=== PATIENT | female | born 1970 | race Caucasian/White ===

== ENCOUNTER → 2023-10-25 10:38 | Outpatient (REF) | payer BC, SELFPAY | LOC: HWRAD 10:38 | PROVIDERS: ATTENDING PHYSICIAN Internal Medicine Rheumatology; FAMILY PHYSICIAN Family Medicine | DX: M25.512 Pain in left shoulder (principal); M25.511 Pain in right shoulder | CPT/HCPCS: 73030 ==

== ENCOUNTER → 2024-01-07 07:40 | Outpatient (REF) | payer BC, SELFPAY | LOC: HWRAD 07:40 | PROVIDERS: ATTENDING PHYSICIAN Internal Medicine Rheumatology; FAMILY PHYSICIAN Family Medicine | DX: M35.9 Systemic involvement of connective tissue, unspecified (principal); M79.7 Fibromyalgia | CPT/HCPCS: 76700 ==

== ENCOUNTER → 2024-01-14 14:49 | Outpatient (REF) | payer BC, SELFPAY | LOC: WDC 14:49 | PROVIDERS: ATTENDING PHYSICIAN Radiology Radiation Oncology; FAMILY PHYSICIAN Family Medicine | DX: Z12.31 Encounter for screening mammogram for malignant neoplasm of breast (principal); Z85.3 Personal history of malignant neoplasm of breast | CPT/HCPCS: 77063; 77067 ==

== ENCOUNTER → 2024-01-25 14:13 | Outpatient (REF) | payer BC, SELFPAY | LOC: HWRAD 14:13 | PROVIDERS: ATTENDING PHYSICIAN Student in an Organized Health Care Education/Training Program; FAMILY PHYSICIAN Family Medicine | DX: M25.521 Pain in right elbow (principal); M25.421 Effusion, right elbow | CPT/HCPCS: 73080 ==

== ENCOUNTER → 2024-01-30 09:57 | Outpatient (REF) | payer BC, SELFPAY | LOC: WDC 09:57 | PROVIDERS: ATTENDING PHYSICIAN Radiology Radiation Oncology; FAMILY PHYSICIAN Family Medicine | DX: R92.2 Inconclusive mammogram (principal); Z85.3 Personal history of malignant neoplasm of breast | CPT/HCPCS: 76641 ==

== ENCOUNTER → 2024-03-21 10:15 | Outpatient (REF) | payer BC, SELFPAY | LOC: HWRAD 10:15 | PROVIDERS: ATTENDING PHYSICIAN Internal Medicine Rheumatology; FAMILY PHYSICIAN Family Medicine | DX: M19.021 Primary osteoarthritis, right elbow (principal); M77.11 Lateral epicondylitis, right elbow; M79.7 Fibromyalgia | CPT/HCPCS: 73080 ==

== ENCOUNTER 2024-05-22 10:40 | Emergency (ER) | payer BC, SELFPAY ==
[2024-05-22] VITALS (10 sets, daily range): BP systolic 154–184; BP diastolic 86–121
--- NOTE | 2024-05-22 11:10 | ED.GENMED ---
History of Present Illness
General
Chief Complaint: Blood Pressure Problem
Source: patient
Exam Limitations: none
Time Seen by Provider: 05/22/24 10:58
History of Present Illness
History of Present Illness:
53yoF with a history of hypertension, hyperlipidemia, gastroparesis, rheumatoid arthritis on PRN NSAIDs, fibromyalgia, breast cancer in remission, and anxiety presenting with her for evaluation of elevated blood pressure. Patient's blood
pressure has been elevated the past several PCP visits with SBP of 158-160. She was switched from atenolol to metoprolol 2 weeks ago. She was instructed to start checking her blood pressure 4x daily after taking this new medication for 2 weeks. She
started checking her blood pressure yesterday for the first time at time. Systolic blood pressure was initially in the 140s which kept increasing each time she checked it, up to 160s. Blood pressure was 178/102 this morning. Her heart rate was in
the 130s today. Patient reports having a headache since yesterday. She also is having dizziness which she describes as feeling lightheaded and swaying with ambulation. Symptoms are only present with standing/activity and resolve with rest. She also
is having some shortness of breath and chest tightness. She called her PCP and was told to go to the ED for evaluation. Patient is not on any other blood pressure medication.
Past History
Past History
ED Past Medical History: Cancer (Breast cancer), HTN, Hypercholesterolemia (Diet-controlled) and Psychiatric (Anxiety)
ED Past Surgical History: Tonsilectomy
Social History
Tobacco: Non-smoker
Alcohol: None
Drug: None
Personal:
Living: with family
Employment: Employed
Family History
Family History: Adopted
Phy Exam
General Physical Exam
General Presentation: well appearing and no apparent distress
General age: appears stated age
General Skin: warm and dry
General Habitus: normal
General Mental: alert and anxious
ENT Exam
ENT Exam: normocephalic
Eye Exam
Eye Exam: PERRL and EOMI
Cardiovascular Exam
Cardiovascular Exam: no murmur and tachycardia
Pulmonary Exam
Pulmonary Exam: lungs clear, no respiratory distress, no rales, no crackles, no rhonchi and no wheezing
Neurological Exam
Neurological Exam: alert, no motor deficits and other (PERRL. EOMs intact without nystagmus. Normal finger to nose and heel to looney bilaterally. )
[place] Coma Scale
Eye Opening: Spontaneous
Verbal Response: Oriented
Motor Response: Obeys Commands
GCS Total Score: 15
Skin Exam
Skin Exam: normal color and warm/dry
Psychiatric Exam
Psychiatric Exam: anxious
Course
Orders/Labs/Results
Orders:
Orders
05/22/24 10:41
Electrocardiogram (*1) Urgent
Reason for Study: Hypertension, Benign
EKG- Treatment ONCE
05/22/24 11:10
CT Head W/o Iv Contrast Urgent
Comment:
Reason For Exam: headache, dizziness, HTN
05/22/24 11:16
Complete Blood Count/With Diff Urgent
Comprehensive Metabolic Panel Urgent
D-Dimer Urgent
Magnesium Urgent
Manual Differential Urgent
TSH Reflex To Free T4 Urgent
Troponin I Urgent
05/22/24 11:58
CT Chest PE Study Urgent
Comment:
Reason For Exam: SOB, tachycardia, elevated D-dimer
05/22/24 14:56
Amlodipine [Norvasc] 5 mg PO ONCE ONE
Abnormal Lab Results
05/22/24
11:16
MCHC 32.9 L g/dL
(33.0-37.0)
Lymphocytes (Manual) 16 L %
(20-51)
Monocytes (Manual) 22 H %
(2-9)
D-Dimer 0.92 H ug/mlFEU
(0.00-0.50)
Glucose 105 H mg/dl
(70-99)
AST 73 H U/L
(14-36)
ALT 105 H U/L
(0-35)
Alkaline Phosphatase 164 H U/L
(38-126)
05/22/24 11:16
05/22/24 11:16
Vital Signs
Initial and Last Documented VS:
Initial Vital Signs
Temp Pulse Resp BP Pulse Ox
98.5 F 128 20 184/121 97
05/22/24 10:50 05/22/24 10:50 05/22/24 10:50 05/22/24 10:50 05/22/24 10:50
Last Documented Vital Signs
Temp Pulse Resp BP Pulse Ox
98.5 F 111 24 163/92 93
05/22/24 10:50 05/22/24 14:45 05/22/24 14:45 05/22/24 14:30 05/22/24 14:45
MDM/Problems Addressed
Differential Diagnosis Includes:
53yoF here with elevated blood pressure. Started checking home BP yesterday and pressures kept increasing. BP 178/102 this morning. C/o headache, dizziness, SOB. BP 184/121 on arrival. HR 128, sinus tachycardia on monitor. Exam reassuring and no
ataxia or nystagmus noted. Differential diagnosis includes but is not limited to: hypertension, hypertensive urgency, hypertensive emergency, thyroid dysfunction
Initial ED plan: Check cardiac labs, magnesium, TSH, D-dimer, EKG, CXR, and CT head. Will monitor BP.
*EKG
Interpreted by ED Provider?: Yes
EKG Intrepretation Date: 05/22/24
Heart Rate: 119
Rate: tachycardiac
Rhythm: sinus
[place]: left axis deviation
Interval: normal interval
QRS Pattern: left vent hypertrophy
Ischemia: non-specific ST changes
*Critical Care Note
Total Time (30-74mins, 75-104mins- exclusive of procedures): Not Applicable
Update Note
Update Note:
EKG shows sinus tachycardia with LVH. Creatinine and troponin normal. TSH WNL. Mild transaminitis noted, patient has known fatty liver and this was elevated previously. D-dimer normal and CTA chest subsequently added. CT head negative for acute
findings. CTA chest negative for pulmonary embolism. Patient feeling improved on reassessment other than feeling fatigued. BP improved to 163/92. Patient able to ambulate with a steady gait. She is stable for discharge. Will prescribe amlodipine 5mg
x 30 day supply. She was advised to continue metoprolol and call her PCP today to schedule a f/u appt. ED return precautions discussed. Patient in agreement with plan and was discharged in stable condition.
ED Attending Note
-
Portions of this chart may have been created with voice recognition software.� Occasional wrong word or��sound alike� substitutions may have occurred due to the inherent limitations of voice recognition software.
Discharge Plan
Departure
Patient Disposition: Home (Routine Discharge)
Date of Disposition: 05/22/24
Time of Disposition: 14:56
Patient with high blood pressure during this ER visit?: Yes
Discharge Problem:
Hypertension
Instructions: High Blood Pressure (DC), Amlodipine
Prescriptions:
New
amlodipine 5 mg tablet
5 mg PO DAILY Qty: 30 0RF
No Action
rabeprazole [AcipHex] 20 MG tablet,delayed release (DR/EC)
20 mg PO DAILY
ibuprofen [Advil] 200 MG tablet
200 mg PO Q6HPRN PRN (Reason: pain)
clonazepam 0.5 MG tablet
0.5 mg PO BID
atenolol 25 MG tablet
25 mg PO DAILY
atorvastatin 40 mg Tablet
40 mg PO HS
therapeutic multivitamin Tablet
1 tab PO DAILY
duloxetine 60 mg Capsule,Delayed Release(Dr/Ec)
60 mg PO DAILY
cholecalciferol (vitamin D3) 25 mcg (1,000 unit) Tablet
25 mcg PO DAILY
Referrals:
Jason Clement MD [Family Provider] -
Activity Restrictions/Additional Instructions:
Start taking amlodipine as prescribed. Continue metoprolol. Check your blood pressure once daily and keep a log.
Please call your family doctor today to schedule a follow-up appointment within the next week. Return to the ER with any new or worsening symptoms.
Interventions
Interventions:
*Risk Screen - Suicide Last Done: 05/22/24 10:50
*General Assessment Last Done: 05/22/24 10:50
*Neglect/Abuse Screening Last Done: 05/22/24 10:50
ED- Fall Risk Assessment Last Done: 05/22/24 11:08
*Nursing Disposition Last Done: 05/22/24 15:09
ED- Cardiac Assessment Last Done: 05/22/24 11:08
ED- Neurological Assessment Last Done: 05/22/24 11:08
ED- Pulmonary Assessment Last Done: 05/22/24 11:08
Discharge Date and Time
Discharge Date/Time: 05/22/24 15:09
Print Language: FINNISH
[2024-05-22 11:52] LABS: D-Dimer 0.92 ug/mlFEU (0.00-0.50)
[2024-05-22 11:53] LABS: Hemoglobin 13.8 g/dL (12.0-16.0); Mean Corp Hgb Conc. 32.9 g/dL (33.0-37.0); Mean Corpuscular Hgb 28.8 pg (27.0-31.0); Mean Corpuscular Volume 87.5 fL (81.0-99.0); Mean Platelet Volume 10.2 fL (7.4-10.4); Platelet Count 307 10^3/uL (130-400); Red Cell Dist. Width 12.4 % (11.5-14.5); White Blood Cell Count 6.5 10^3/uL (4.8-10.8)
[2024-05-22 11:56] LABS: ALT (SGPT) 105 U/L (0-35); AST (SGOT) 73 U/L (14-36); Albumin 4.9 g/dl (3.5-5.0); Alkaline Phosphatase 164 U/L (38-126); Blood Urea Nitrogen 12 mg/dl (7-17); Calcium 9.5 mg/dl (8.4-10.2); Carbon Dioxide 25 mmol/L (22-30); Chloride 103 mmol/L (98-107); Glucose 105 mg/dl (70-99); Magnesium 2.1 mg/dl (1.6-2.3); Potassium 3.9 mmol/L (3.5-5.1); Sodium 141 mmol/L (135-145); Total Bilirubin 0.6 mg/dl (0.2-1.3); Total Protein 7.4 g/dl (6.3-8.2); eGFR > 60.00
[2024-05-22 12:07] LABS: Troponin I < 0.012 ng/ml
[2024-05-22 12:31] LABS: Absolute Neutrophils -Man Diff 3.9 10^3/uL (1.4-6.5); Band Neutrophils 1 % (0-3); Eosinophils 1 % (0-6); Lymphocytes 16 % (20-51); Monocytes 22 % (2-9); Segmented Neutrophils 60 % (42-75)
[2024-05-22 12:32] LABS: Normal RBC Morphology Yes; Platelets Checked Yes; Total Cells Counted 100
[2024-05-22 13:32] LABS: TSH Reflex To Free T4 1.23 uIU/ml (0.47-4.68)
[2024-05-22] MEDS: NORVASC 5 MG PO (15:06)
== END 2024-05-22 15:09 | disposition home or self-care (01) ==
LOC: EMR 10:40
PROVIDERS: Physician Assistant; EMERGENCY PHYSICIAN Emergency Medicine; FAMILY PHYSICIAN Family Medicine
DX: I10 Essential (primary) hypertension (principal); R51.9 Headache, unspecified; R42 Dizziness and giddiness; R06.02 Shortness of breath; R07.89 Other chest pain; K31.84 Gastroparesis; M06.9 Rheumatoid arthritis, unspecified; M79.7 Fibromyalgia; Z85.3 Personal history of malignant neoplasm of breast; Z88.1 Allergy status to other antibiotic agents; Z88.5 Allergy status to narcotic agent; Z88.2 Allergy status to sulfonamides
CPT/HCPCS: 99284; 70450; 71275; 80053; 83735; 84443; 84484; 85025; 85379; 93005; Q9967

== ENCOUNTER → 2024-05-29 19:22 | Outpatient (REF) | payer BC, SELFPAY | LOC: MRI 3T 19:22 | PROVIDERS: ATTENDING PHYSICIAN Internal Medicine Rheumatology; FAMILY PHYSICIAN Family Medicine | DX: M19.021 Primary osteoarthritis, right elbow (principal); M77.11 Lateral epicondylitis, right elbow; M79.7 Fibromyalgia | CPT/HCPCS: 73221 ==

== ENCOUNTER → 2024-11-28 10:27 | Outpatient (REF) | payer BC, SELFPAY | LOC: HWRAD 10:27 | PROVIDERS: ATTENDING PHYSICIAN Internal Medicine Rheumatology; FAMILY PHYSICIAN Family Medicine | DX: M17.10 Unilateral primary osteoarthritis, unspecified knee (principal) | CPT/HCPCS: 73560; 73565 ==

== ENCOUNTER → 2025-01-14 14:40 | Outpatient (REF) | payer BC, SELFPAY | LOC: WDC 14:40 | PROVIDERS: ATTENDING PHYSICIAN Radiology Radiation Oncology; FAMILY PHYSICIAN Family Medicine | DX: Z12.31 Encounter for screening mammogram for malignant neoplasm of breast (principal) | CPT/HCPCS: 77063; 77067 ==